=== PATIENT | female | born 1995 | race African-American/Black ===

== ENCOUNTER 2021-05-01 16:51 | Inpatient (IN) | payer MEDICAID, OTHER ==
[~2021-05-01] VITALS: Ht 167.6 cm; Wt 70.0 kg
[2021-05-01 19:07] LABS: BASOPHILS % 0.6 % (0.0-2.0); EOSINOPHILS % 0.5 % (0.0-5.0); HEMOGLOBIN. 13.6 g/dL (12.0-16.0); LYMPHOCYTES % 31.6 % (20.0-50.0); MEAN CORPUSCULAR HEMOGLOBIN 26.8 pg (28.0-32.0); MEAN CORPUSCULAR VOLUME 82.8 fL (81.0-99.0); MEAN PLATELET VOLUME 9.1 fl (7.4-10.4); MONOCYTES % 9.6 % (2.0-8.0); NEUTROPHILS % 57.7 % (40.0-76.0); PLATELET 125 x1000/uL (130-400); RED BLOOD CELL COUNT 5.07 mill/uL (4.2-5.4); RED CELL DISTRIBUTION WIDTH 12.9 % (11.6-14.6)
[2021-05-01] MEDS ORDERED: ONDANSETRON 4MG ODT PO ONE (19:15)
[2021-05-01 19:17] LABS: CHLORIDE 104 mEq/L (98-107)
[2021-05-01 19:48] LABS: PHOSPHORUS 2.9 mg/dL (2.5-4.9)
[2021-05-01 19:57] LABS: B-HCG QUANTITATIVE 77613 mIU/mL (<3)
[2021-05-01 20:25] LABS: CLARITY URINE CLEAR (CLEAR); COLOR URINE DK YELLOW (YELLOW); KETONES URINE 4+ (NEGATIVE); LEUKOCYTE ESTERASE URINE NEGATIVE (NEGATIVE); NITRITE URINE NEGATIVE (NEGATIVE); OCCULT BLOOD URINE NEGATIVE (NEGATIVE); PH URINE 6.5 (4.5-8.0); PROTEIN URINE 1+ (NEGATIVE); SPECIFIC GRAVITY URINE 1.036 (1.005-1.030)
[2021-05-01] MEDS ORDERED: POTASSIUM CHLORIDE 20MEQ TABLET SR PO ONE (21:00)
[2021-05-01] MEDS ORDERED: KCL 10MEQ/50ML PREMIX 50 ML IV ONE ×2 (21:00)
[2021-05-01] MEDS ORDERED: POTASSIUM BICARB/CIT ACID 25 MEQ TABLET.EFF PO ONE ×2 (21:30→21:45)
[2021-05-01] MEDS ORDERED: PYRIDOXINE HCL 50MG TABLET PO ONE (23:00)
[2021-05-01] MEDS ORDERED: SODIUM CHLORIDE 0.9% 1,000 ML IV ONE (23:00)
[2021-05-01] MEDS ORDERED: MAGNESIUM/ALUMINUM HYDROXIDE/SIMETHICONE 30ML UDC PO PRN (23:30)
[2021-05-01] MEDS ORDERED: IPRATROPIUM/ALBUTEROL 0.5-3(2.5)MG/3ML NEB NEB PRN (23:30)
[2021-05-01] MEDS ORDERED: SODIUM CHLORIDE 0.9% 1,000 ML IV SCH (23:30)
[2021-05-01] MEDS ORDERED: ACETAMINOPHEN 325MG TABLET PO PRN (23:30)
[2021-05-02] MEDS: PYRIDOXINE HCL 50MG TABLET PO SCH ×2 (00:30→06:57)
[2021-05-02 07:30] VITALS: BP 98/64
== END 2021-05-02 09:51 | disposition left against medical advice (07) | DRG 566 ==
LOC: ER 16:51 → MICUSO 22:46
PROVIDERS: ADMIT Internal Medicine; ATTEND Internal Medicine
DX: O99.281 Endocrine, nutritional and metabolic diseases complicating pregnancy, first trimester (principal); E87.6 Hypokalemia; Z53.29 Procedure and treatment not carried out because of patient's decision for other reasons; O99.341 Other mental disorders complicating pregnancy, first trimester; O20.8 Other hemorrhage in early pregnancy; F41.1 Generalized anxiety disorder; Z3A.01 Less than 8 weeks gestation of pregnancy; Z82.49 Family history of ischemic heart disease and other diseases of the circulatory system
CPT/HCPCS: 36415; 76801; 80053; 81003; 83735; 84100; 84702; 85025; 93005; 99285; J3480; J7030; Q0162

== ENCOUNTER 2021-05-21 05:58 | Emergency (ER) | payer MEDICAID, OTHER ==
[~2021-05-21] VITALS: Ht 172.7 cm; Wt 75.0 kg
[2021-05-21] MEDS ORDERED: SODIUM CHLORIDE 0.9% 1,000 ML IV ONE (06:30)
[2021-05-21 06:57] LABS: CHLORIDE 104 mEq/L (98-107)
[2021-05-21 07:00] LABS: BASOPHILS % 0.4 % (0.0-2.0); EOSINOPHILS % 0.3 % (0.0-5.0); HEMATOCRIT. 43.3 % (36.0-48.0); HEMOGLOBIN. 14.6 g/dL (12.0-16.0); LYMPHOCYTES % 37.1 % (20.0-50.0); MEAN CORPUSCULAR HEMOGLOBIN 27.3 pg (28.0-32.0); MEAN CORPUSCULAR VOLUME 81.1 fL (81.0-99.0); MEAN PLATELET VOLUME 9.5 fl (7.4-10.4); MONOCYTES % 11.2 % (2.0-8.0); PLATELET 168 x1000/uL (130-400); RED BLOOD CELL COUNT 5.34 mill/uL (4.2-5.4); RED CELL DISTRIBUTION WIDTH 12.7 % (11.6-14.6)
[2021-05-21 07:02] LABS: CLARITY URINE CLEAR (CLEAR); COLOR URINE DARK YELLOW (YELLOW); KETONES URINE 4+ (NEGATIVE); LEUKOCYTE ESTERASE URINE TRACE (NEGATIVE); NITRITE URINE NEGATIVE (NEGATIVE); OCCULT BLOOD URINE NEGATIVE (NEGATIVE); PROTEIN URINE 1+ (NEGATIVE); SPECIFIC GRAVITY URINE 1.031 (1.005-1.030)
[2021-05-21 07:21] LABS: B-HCG QUANTITATIVE 146565 mIU/mL (<3)
[2021-05-21] MEDS ORDERED: ONDA4TAB5 PO (10:12)
[2021-05-21] MEDS ORDERED: TOPUD PO (10:12)
[2021-05-21] MEDS ORDERED: ACETAMINOPHEN 325MG TABLET PO ONE (12:00)
[2021-05-21] MEDS ORDERED: ONDANSETRON HCL 4MG TABLET PO ONE (12:00)
[2021-05-21 12:19] VITALS: BP 112/69
== END 2021-05-21 12:23 | disposition home or self-care (01) ==
LOC: ER 06:33
DX: O02.1 Missed abortion (principal); R94.31 Abnormal electrocardiogram [ECG] [EKG]
CPT/HCPCS: 36415; 76801; 76817; 80053; 81003; 81025; 84702; 85025; 86850; 86900; 86901; 93005; 96360; 96361; 99285; J7030; Q0162

== ENCOUNTER 2022-04-28 13:58 | Inpatient (IN) | payer MEDICAID, OTHER ==
[~2022-04-28] VITALS: Ht 165.1 cm; Wt 63.5 kg
[~2022-04-28 13:58] MED LIST: FOLI-64 MT; ONDA4TAB5 PO; TOPUD PO
[2022-04-28] MEDS ORDERED: ONDANSETRON HCL 4MG/2ML INJ IV STA (14:42)
[2022-04-28] MEDS ORDERED: SODIUM CHLORIDE 0.9% 1,000 ML IV ONE ×2 (14:45→22:00)
[2022-04-28 16:03] LABS: BASOPHILS % 0.4 % (0.0-2.0); EOSINOPHILS % 0.1 % (0.0-5.0); HEMATOCRIT. 38.5 % (36.0-48.0); HEMOGLOBIN. 12.7 g/dL (12.0-16.0); LYMPHOCYTES % 32.5 % (20.0-50.0); MEAN CORPUSCULAR HEMOGLOBIN 27.7 pg (28.0-32.0); MEAN CORPUSCULAR VOLUME 84.1 fL (81.0-99.0); MEAN PLATELET VOLUME 9.1 fl (7.4-10.4); MONOCYTES % 10.7 % (2.0-8.0); NEUTROPHILS % 56.3 % (40.0-76.0); PLATELET 182 x1000/uL (130-400); RED BLOOD CELL COUNT 4.58 mill/uL (4.2-5.4); RED CELL DISTRIBUTION WIDTH 13.3 % (11.6-14.6)
[2022-04-28 16:11] LABS: CHLORIDE 101 mEq/L (98-107)
[2022-04-28] MEDS ORDERED: KCL 10MEQ/50ML PREMIX 50 ML IV ONE (16:15)
[2022-04-28] MEDS ORDERED: POTASSIUM CHLORIDE 20MEQ TABLET SR PO ONE (16:15)
[2022-04-28 16:33] LABS: BETA HYDROXYBUTYRATE 0.7 mMol/L (0.0-0.3); PHOSPHORUS 4.5 mg/dL (2.5-4.9)
[2022-04-28] MEDS: PYRIDOXINE HCL 50MG TABLET PO ONE ×2 (17:07→17:42)
[2022-04-28] MEDS ORDERED: HYDROCODONE/ACETAMINOPHEN 5/325MG TABLET PO PRN (22:00)
[2022-04-28] MEDS ORDERED: NALOXONE HCL 0.4MG/ML VIAL IV PRN (22:00)
[2022-04-29] MEDS ORDERED: ONDANSETRON HCL 4MG/2ML INJ IV PRN (13:00)
[2022-04-29] MEDS ORDERED: DEXT 5%/0.45% NACL 1000ML 1,000 ML IV SCH (13:00)
[2022-04-29] MEDS ORDERED: ACETAMINOPHEN 325MG TABLET PO PRN (13:00)
[2022-04-29 13:28] VITALS: BP 138/84
[2022-04-29 13:34] VITALS: BP 113/55
[2022-04-29 16:00] VITALS: BP 101/50
[2022-04-29 20:00] VITALS: BP 111/52
[2022-04-29] MEDS ORDERED: FAMOTIDINE 20MG TABLET PO SCH (21:00)
[2022-04-30] VITALS: BP 118/55
== END 2022-04-30 01:37 | disposition left against medical advice (07) | DRG 566 ==
LOC: ER 13:58 → 6EST 19:10 → ENRESERV 04-29 11:02
PROVIDERS: ADMIT Internal Medicine; ATTEND Internal Medicine
DX: O21.1 Hyperemesis gravidarum with metabolic disturbance (principal); O99.281 Endocrine, nutritional and metabolic diseases complicating pregnancy, first trimester; Z53.29 Procedure and treatment not carried out because of patient's decision for other reasons; Z79.899 Other long term (current) drug therapy; Z3A.13 13 weeks gestation of pregnancy
CPT/HCPCS: 36415; 71045; 76801; 80053; 82010; 83735; 84100; 84484; 84702; 85025; 93005; 99285; J2405; J3480; J7030